=== PATIENT | female | born 1970 | race Two or more races ===

== ENCOUNTER 2019-04-29 17:01 | Emergency (ER) | payer OTHER ==
[~2019-04-29] VITALS: Ht 154.9 cm; Wt 99.8 kg
== END 2019-04-29 23:39 | disposition home or self-care (01) ==
LOC: ER 17:01
DX: N39.0 Urinary tract infection, site not specified (principal); R10.32 Left lower quadrant pain

== ENCOUNTER 2022-09-09 19:38 | Emergency (ER) | payer OTHER ==
[~2022-09-09] VITALS: Ht 180.3 cm; Wt 115.2 kg
[2022-09-09] MEDS ORDERED: METFORMIN HCL500 M3 (20:32)
== END 2022-09-10 01:33 | disposition home or self-care (01) ==
LOC: ER 19:38
DX: E13.65 Other specified diabetes mellitus with hyperglycemia (principal); J06.9 Acute upper respiratory infection, unspecified; G24.3 Spasmodic torticollis; R11.0 Nausea; Z88.0 Allergy status to penicillin; Z20.822 Contact with and (suspected) exposure to COVID-19

== ENCOUNTER 2023-02-01 09:28 | Outpatient (CLI) | payer OTHER ==
[~2023-02-01 09:28] MED LIST: METFORMIN HCL500 M3
== END 2023-02-01 09:41 | disposition home or self-care (01) ==
LOC: RAD 09:28
PROVIDERS: ATTEND Physical Medicine & Rehabilitation
DX: M54.2 Cervicalgia (principal); M54.59 Other low back pain; M54.6 Pain in thoracic spine; M25.512 Pain in left shoulder

== ENCOUNTER 2023-03-26 09:41 | Outpatient (CLI) | payer OTHER | END 2023-03-26 09:44 | disposition home or self-care (01) | LOC: SONOGRAMA 09:41 | PROVIDERS: ATTEND Physical Medicine & Rehabilitation | DX: M25.512 Pain in left shoulder (principal); M75.102 Unspecified rotator cuff tear or rupture of left shoulder, not specified as traumatic ==

== ENCOUNTER 2023-08-12 22:52 | Emergency (ER) | payer OTHER ==
[~2023-08-12] VITALS: Ht 157.5 cm; Wt 113.4 kg
[2023-08-12] MEDS ORDERED: HUMALOG100 UNIT/2 SQ (23:11)
[2023-08-12] MEDS ORDERED: PROTONIX40 MG PO (23:11)
[2023-08-12] MEDS ORDERED: LOVENOX100 MG/1 M SUBCUTANEO (23:12)
[2023-08-12] MEDS ORDERED: LIPITOR40 M1 PO (23:12)
[2023-08-12] MEDS ORDERED: NORVASC10 MG PO (23:12)
[2023-08-13] MEDS ORDERED: MECLIZINE HCL 25 MG TABLET PO STA (00:19)
[2023-08-13] MEDS ORDERED: INSULIN REGULAR, HUMAN 1,000 UNIT/10 ML UNITS IV STA (00:53)
[2023-08-13] MEDS ORDERED: 0.9 % SODIUM CHLORIDE 500 ML IV ONE (01:00)
[2023-08-13 01:07] LABS: HEMATOCRIT 43.2 % (36.0-45.00); HEMOGLOBIN 14.6 g/dL (12.0-15.00); MEAN CELL VOLUME 86.8 fL (80.00-100.00); MEAN CORPUSCULAR HEMOGLOBIN 29.4 pg (27.00-32.0); MEAN CORPUSCULAR HGB CONC 33.9 g/dl (32.0-36.0); PLATELET COUNT 243 K/uL (150-450); RED BLOOD COUNT 4.98 M/uL (4.00-6.00); RED CELL DISTRIBUTION WIDTH 13.5 % (11.5-14.5)
[2023-08-13 01:18] LABS: INR 1.03; PARTIAL THROMBOPLASTIN TIME 33.7 SECONDS (22.0-34.0); PROTHROMBIN TIME 10.8 SECONDS (9.0-11.5)
[2023-08-13 01:39] LABS: ALBUMIN 3.7 gm/dL (3.4-5.0); BILIRUBIN TOTAL 0.24 mg/dL (0.3-1.2); CALCIUM 9.4 mg/dL (8.5-10.1); CREATININE SERUM 0.82 mg/dL (0.55-1.02); GFR 72.65; GLOBULINA 4.5 G/DL (2.4-3.5); POTASSIUM 3.76 mEq/L (3.5-5.1); TOTAL PROTEIN 8.2 gm/dL (6.4-8.2)
[2023-08-13 03:36] LABS: PH,URINE 7.5 (5.0-8.0); URINE APPEARANCE Clear; URINE BILIRRUBIN Negative (NEGATIVE); URINE BLOOD Negative; URINE COLOR Yellow; URINE GLUCOSE Negative (NEGATIVE); URINE LEUKOCYTE Small; URINE NITRATE Negative; URINE PROTEIN 30 (NEGATIVE)
[2023-08-13 03:40] LABS: URINE BACTERIA 1016.7 uL (0.0-1933); URINE EPITHELIAL CELLS 22.2 uL (0.0-38.8); URINE RBC 10.3 uL (0.0-20.8); URINE WBC 45.9 uL (0.0-23.2)
[2023-08-13] MEDS ORDERED: MACROBID 100 M100 MG PO (04:19)
== END 2023-08-13 04:23 ==
LOC: ER 22:52
PROVIDERS: General Practice
DX: R42 Dizziness and giddiness (principal); Z88.0 Allergy status to penicillin; E11.65 Type 2 diabetes mellitus with hyperglycemia; Z79.4 Long term (current) use of insulin; I10 Essential (primary) hypertension; Z86.73 Personal history of transient ischemic attack (TIA), and cerebral infarction without residual deficits; G45.9 Transient cerebral ischemic attack, unspecified